=== PATIENT | female | born 1960 | race Caucasian/White ===

== ENCOUNTER 2017-02-11 00:21 | Emergency (ER) ==
[2017-02-11 01:03] LABS: BASOPHILS # (AUTO) 0.1 K/uL (0-0.2); BASOPHILS % (AUTO) 0.9 % (0.0-3.0); EOSINOPHILS # (AUTO) 0.1 K/ul (0.0-0.7); HEMATOCRIT 37.9 % (37.0-47.0); HEMOGLOBIN 12.1 g/dl (12.0-16.0); IMMATURE GRANULOCYTE % (AUTO) 0.6 % (0.0-5.0); LYMPHOCYTES # (AUTO) 1.4 K/uL (0.60-3.4); LYMPHOCYTES % (AUTO) 19.5 (10.0-50.0); MEAN CORPUSCULAR HEMOGLOBIN 26.2 pg (27.0-31.0); MEAN CORPUSCULAR HGB CONC 31.9 (31.8-35.4); MONOCYTES # (AUTO) 0.6 K/uL (0.4-2.0); MONOCYTES % (AUTO) 8.2 (0-10); NEUTROPHILS # (AUTO) 4.8 K/ul (2.0-6.9); NEUTROPHILS % (AUTO) 68.8; PLATELET COUNT 209 10^3/uL (140-440); RED BLOOD COUNT 4.62 10^6/ul (4.20-5.40); WHITE BLOOD COUNT 6.99 K/ul (4.6-10.2)
[2017-02-11 01:12] VITALS: BP 131/97; TEMP 98.3; BMI 43.4
--- NOTE | 2017-02-11 01:18 | CT ---
EXAM: CT head without contrast. HISTORY: Vertigo. PROCEDURE: Contiguous axial CT images of the head without contrast. FINDINGS: The ventricles and basal cisterns are normal in size and configuration. No evidence of mass or midline shift. No intracranial hemorrhage or evidence of large vessel infarct. No extra-ax ial fluid collection. The paranasal sinuses and mastoid air cells are well-aerated. Impression: Negative CT of the head.
[2017-02-11 01:31] LABS: ABG BASE EXCESS 1 (-2.0-2.0); ABG PCO2 43.5 mmHg (35-45); ABG PH 7.381 (7.35-7.45)
[2017-02-11 01:32] LABS: ABG HCO3 25.8 (22.0-26.0); ABG TCO2 27 (22.0-28.0)
[2017-02-11 01:50] LABS: ALANINE AMINOTRANSFERASE 21 U/L (12-78); ALBUMIN 3.5 g/dL (3.4-5.0); ALBUMIN/GLOBULIN RATIO 0.92; ALKALINE PHOSPHATASE 87 U/L (42-98); AMYLASE 55 U/L (25-115); ANION GAP 12.9; ASPARTATE AMINO TRANSFERASE 15 U/L (15-37); BILIRUBIN,TOTAL 0.28 mg/dL (0.00-1.20); BLOOD UREA NITROGEN 13 mg/dL (7-18); BUN/CREATININE RATIO 14.94; CALCIUM 9.3 mg/dL (8.2-10.2); CARBON DIOXIDE 28 mmol/L (21-32); CHLORIDE 107 mmol/L (98-107); CREATINE KINASE 40 U/L; CREATININE 0.87 mg/dL (0.60-1.30); GLUCOSE 167 mg/dL (70-110); LIPASE 42 U/L (8-78); POTASSIUM 3.9 mmol/L (3.5-5.10); SODIUM 144 mmol/L (136-145); TOTAL PROTEIN 7.3 g/dL (6.4-8.2)
[2017-02-11] MEDS: PHENERGAN 25 MG/ML VIAL ONE (02:09)
[2017-02-11] MEDS: PHENERGAN 25 MG/ML VIAL 25 MG in SODIUM CHLORIDE 50 ML IV STA (02:09)
[2017-02-11] MEDS: SODIUM CHLORIDE 1,000 ML IV STA ×2 (02:10→06:16)
--- NOTE | 2017-02-11 06:17 | ED.PDOC ---
General ED Provider: Dr. PEPITO MCKNIGHT-ER Chief Complaint: Dizziness Stated Complaint: the room is spinning Time Seen by Physician: 01:10 Mode of Arrival: Wheelchair Information Source: Patient Exam Limitations: No limitations Nursing and Triage Documentation Reviewed and Agree: Yes Neurological Complaint Exam - Dizziness Complaint/Exam Last Known Well: today Onset: Sudden Duration: several minutes Symptoms Are: Still present Episodes Lasting: Minutes Initial Severity: Mild Current Severity: Mild Character: Reports: Head spinning, Room spinning, Dizzy Aggravating: Reports: None Alleviating: Reports: None Associated Signs and Symptoms: Reports: Nausea. Denies: Vomiting, Diaphoresis, Tinnitus, Chest pain, Short of air, Palpitations, Unsteady gait, GI blood loss, Visual changes, Decreased oral intake, Change in medication, Change in diet, OTC meds, Loss of balance Cardiac Risk Factors: Reports: Diabetes CVA Risk Factors: Reports: Diabetes JVD Present: No Carotid Bruit Present: No Glascow Coma Scale (see protocol): 15 Nystagmus Present: No Gag Reflex Present: Yes Meningeal Signs Positive: No Focal Weakness: Present: None Focal Sensory Loss: Present: None Gait: Normal [id number]: Normal Findings Romberg Test Positive: No Babinski Sign: Negative Right, Negative Left Heel to Toe Normal: Yes Wilian-Hallpike Test Positive: Yes Differential Diagnoses: BPPV, Labyrinthitis, Other Quality Indicator For Non-Traumatic Chest Pain/Syncope: EKG Performed Review of Systems - Review Of Systems Constitutional: Reports: No symptoms Eyes: Reports: No symptoms Ears, Nose, Mouth, Throat: Reports: No symptoms Respiratory: Reports: No symptoms Cardiac: Reports: No symptoms GI: Reports: Nausea : Reports: No symptoms Musculoskeletal: Reports: No symptoms Skin: Reports: No symptoms Neurological: Reports: Other Endocrine: Reports: No symptoms Hematologic/Lymphatic: Reports: No symptoms All Other Systems: Reviewed and Negative Past Medical History - Past Medical History Endocrine: Reports: DM 2 Cardiovascular: Reports: Unknown Respiratory: Reports: Unknown Hematological: Reports: Unknown Gastrointestinal: Reports: Unknown Genitourinary: Reports: Unknown Neuro/Psych: Reports: Unknown Musculoskeletal: Reports: Unknown Cancer: Reports: Unknown Last Menstrual Period: 1991 - Surgical History General Surgical History: Reports: Unknown - Family History Family History: Reports: Unknown - Social History Smoking Status: Former smoker Hx Substance Use: No Alcohol Screening: None - Immunizations Tetanus Shot up to Date: Yes Physical Exam - Physical Exam Appearance: Well-appearing, No pain distress, Well-nourished Eyes: JOSE, EOMI, Conjunctiva clear ENT: Ears normal, Nose normal, Oropharynx normal Neck: Supple Respiratory: Airway patent, Breath sounds clear, Breath sounds equal, Respirations nonlabored Cardiovascular: RRR, Pulses normal, No rub, No murmur GI/: Soft, Nontender, No masses, Bowel sounds normal, No Organomegaly Musculoskeletal: Normal strength, ROM intact, No edema, No calf tenderness Skin: Warm Neurological: Sensation intact, Motor intact, Reflexes intact, Cranial nerves intact, Alert, Oriented Psychiatric: Affect appropriate, Mood appropriate Interpretation - Radiology Interpretation Radiology Interpretation By: Radiologist Radiology Results: Negative Exam Interpreted: CT Scan - EKG Interpretation Time of EKG #1: 06:17 Rate: Normal Rhythm: Sinus Ectopy: None [place]: [place] ST Segment: Normal Re-Evaluation - Re-Evaluation Time of Re-Evaluation: 06:18 Status: Improved Vital Signs Stable: Yes Pain Level: 0 Appearance: NAD Lungs: Clear Skin: Warm and Dry Neuro: Alert and Oriented X3 CV: RRR Critical Care Note - Critical Care Note Total Time (mins): 0 Course - Course Hematology/Chemistry: 02/11/17 01:03 02/11/17 01:03 Orders, Labs, Meds: Lab Review 02/11/17 02/11/17 00:51 01:03 WBC 6.99 RBC 4.62 Hgb 12.1 Hct 37.9 MCV 82.0 MCH 26.2 L MCHC 31.9 RDW Coeff of Wilian 14.5 Plt Count 209 Immature Gran % (Auto) 0.6 Neut % (Auto) 68.8 Lymph % (Auto) 19.5 [place] % (Auto) 8.2 Eos % (Auto) 2.0 Baso % (Auto) 0.9 Immature Gran # (Auto) 0.0 Neut # 4.8 Lymph # 1.4 [place] # 0.6 Eos # 0.1 Baso # 0.1 Puncture Site Lb O2 Saturation 94.0 L ABG pH 7.381 ABG pCO2 43.5 ABG pO2 72.0 L ABG HCO3 25.8 ABG Total CO2 27 ABG Base Excess 1 Dav Test + FiO2 % 21.0 Sodium 144 Potassium 3.9 Chloride 107 Carbon Dioxide 28 Anion Gap 12.9 BUN 13 Creatinine 0.87 Estimated GFR (MDRD) 67.00 BUN/Creatinine Ratio 14.94 Glucose 167 H Calcium 9.3 Total Bilirubin 0.28 AST 15 ALT 21 Alkaline Phosphatase 87 Total Creatine Kinase 40 Troponin I < 0.0100 Total Protein 7.3 Albumin 3.5 Globulin 3.8 Albumin/Globulin Ratio 0.92 Amylase 55 Lipase 42 TSH 1.343 Orders Category Date Time Status ABG DRAW REQUEST Stat CARDIO 02/11/17 00:52 Completed EKG-(ED ONLY) Stat CARDIO 02/11/17 00:52 Completed IV [ED IV/MEDIPORT/POWERPORT] .ONCE EMERGENCY 02/11/17 00:52 Active ABG Stat LAB 02/11/17 00:51 Completed AMYLASE Stat LAB 02/11/17 01:03 Completed CBC W/ AUTO DIFF Stat LAB 02/11/17 01:03 Completed COMPREHENSIVE METABOLIC PANEL Stat LAB 02/11/17 01:03 Completed CREATINE KINASE Stat LAB 02/11/17 01:03 Completed LIPASE Stat LAB 02/11/17 01:03 Completed THYROID STIMULATING HORMONE Stat LAB 02/11/17 01:03 Completed TROPONIN I Stat LAB 02/11/17 01:03 Completed URINALYSIS C & S IF INDICATED Stat LAB 02/11/17 00:52 Uncollected 0.9 % Sodium Chloride [Saline Flush] MEDS 02/11/17 00:52 Ordered 1 syr IVF PRN PRN Promethazine HCl [Phenergan 25 mg/ml Vial] MEDS 02/11/17 01:58 Discontinued 25 mg .ROUTE .STK-MED ONE Promethazine HCl [Phenergan 25 mg/ml Vial] 25 mg MEDS 02/11/17 00:53 Discontinued 0.9 % Sodium Chloride [Sodium Chloride] 50 ml IV ONCE Sodium Chloride 0.9% [Sodium Chloride] 1,000 ml MEDS 02/11/17 00:53 Discontinued IV 100 mls/hr Sodium Chloride 0.9% [Sodium Chloride] 1,000 ml MEDS 02/11/17 00:54 Discontinued IV 333 mls/hr CT HEAD W/O CONTRAST Stat RADS 02/11/17 00:53 Completed Medications Generic Name Dose Route Start Last Admin Trade Name Freq PRN Reason Stop Dose Admin Sodium Chloride 1 syr 02/11/17 00:52 Saline Flush IVF PRN PRN To flush IV Discontinued Medications Generic Name Dose Route Start Last Admin Trade Name Jason PRN Reason Stop Dose Admin Promethazine HCl 25 mg/ Sodium 51 mls @ 75 mls/hr 02/11/17 00:53 02/11/17 02: 09 Chloride IV 02/11/17 01:33 75 mls/hr ONCE STA Administration Sodium Chloride 1,000 mls @ 100 mls/hr 02/11/17 00:53 02/11/17 02:10 Sodium Chloride IV 02/11/17 10:52 100 mls/hr .Q10H STA Administration Sodium Chloride 1,000 mls @ 333 mls/hr 02/11/17 00:54 Sodium Chloride IV 02/11/17 03:53 .Q3H1M STA Vital Signs: Temp Pulse Resp BP Pulse Ox 02/11/17 01:00 98.3 F 85 20 131/97 H 97 Departure - Departure Time of Disposition: 06:18 Disposition: HOME SELF-CARE Discharge Problem: Vertigo Instructions: Vertigo (ED) Condition: Good Pt referred to PMD for follow-up: Yes Additional Instructions: antivert 25mg tid for dizziness#21--avoid driving and climbing next 2-3 days--f/ u with pcp Allergies/Adverse Reactions: Allergies loratadine [From Claritin] Adverse Reaction (Verified 02/11/17 01:13) Nausea nausea and rapid heart rate metformin Adverse Reaction (Verified 02/11/17 01:13) Nausea Home Medications: Ambulatory Orders Benazepril HCl 5 mg PO DAILY 02/11/17 Clopidogrel Bisulfate [Plavix] 75 mg PO DAILY 02/11/17 Insulin Glargine,Hum.rec.anlog [Lantus] 100 unit SUBCUT QPM 02/11/17 Insulin Lispro [Humalog] 1 unit SQ DIRECTED 02/11/17 Meloxicam [Mobic] 15 mg PO DAILY 02/11/17 Pioglitazone HCl 60 mg PO DAILY 02/11/17
== END 2017-02-11 06:29 | disposition home or self-care (01) ==
LOC: ED 00:21
DX: R42 Dizziness and giddiness (principal); E11.9 Type 2 diabetes mellitus without complications
CPT/HCPCS: 36415; 80053; 82150; 82550; 82803; 83690; 84443; 84484; 85025; 93005; 93010; 96361; 96365; 99285

== ENCOUNTER 2017-02-16 07:36 | Outpatient (CLI) ==
[2017-02-16 08:05] LABS: BASOPHILS # (AUTO) 0.1 K/uL (0-0.2); BASOPHILS % (AUTO) 0.8 % (0.0-3.0); EOSINOPHILS # (AUTO) 0.2 K/ul (0.0-0.7); EOSINOPHILS % (AUTO) 2.3 % (0.0-7.0); HEMATOCRIT 39.4 % (37.0-47.0); HEMOGLOBIN 12.8 g/dl (12.0-16.0); IMMATURE GRANULOCYTE % (AUTO) 0.7 % (0.0-5.0); LYMPHOCYTES # (AUTO) 2.2 K/uL (0.60-3.4); LYMPHOCYTES % (AUTO) 25.3 (10.0-50.0); MEAN CORPUSCULAR HEMOGLOBIN 26.2 pg (27.0-31.0); MEAN CORPUSCULAR HGB CONC 32.5 (31.8-35.4); MEAN CORPUSCULAR VOLUME 80.7 fl (81.0-99.0); MONOCYTES # (AUTO) 0.6 K/uL (0.4-2.0); MONOCYTES % (AUTO) 7.3 (0-10); NEUTROPHILS # (AUTO) 5.4 K/ul (2.0-6.9); NEUTROPHILS % (AUTO) 63.6; PLATELET COUNT 237 10^3/uL (140-440); RED BLOOD COUNT 4.88 10^6/ul (4.20-5.40); WHITE BLOOD COUNT 8.55 K/ul (4.6-10.2)
[2017-02-16 08:09] LABS: BILIRUBIN,URINE Negative (NEGATIVE); KETONES,URINE Negative (NEGATIVE); LEUKOCYTE ESTERASE ,URINE Negative (NEGATIVE); NITRITE,URINE Negative (NEGATIVE); PROTEIN,URINE Negative (NEGATIVE); URINE, BLOOD Negative (NEGATIVE)
[2017-02-16 08:10] LABS: ADD URINE MICROSCOPIC NO
[2017-02-16 08:26] LABS: COCAIN SCREEN,URINE NEGATIVE (NEGATIVE)
[2017-02-16 08:45] LABS: ALBUMIN 3.4 g/dL (3.4-5.0); ALBUMIN/GLOBULIN RATIO 0.81; ANION GAP 14.1; BILIRUBIN,TOTAL 0.31 mg/dL (0.00-1.20); BUN/CREATININE RATIO 24.17; CALCIUM 9.6 mg/dL (8.2-10.2); CHOL/HDL RATIO 8.3 (4.5-5.5); CREATININE 0.91 mg/dL (0.60-1.30); POTASSIUM 4.1 mmol/L (3.5-5.10); TOTAL PROTEIN 7.6 g/dL (6.4-8.2)
--- NOTE | 2017-02-16 10:05 | DI ---
Exam: Two x-rays of the chest. Comparison: None available. Reason for exam: Chest pain. FINDINGS: No pneumothorax, pleural effusion, or focal consolidation. The cardiac silhouette is not enlarged. There is elevation of the right hemidiaphragm. The imaged osseous structures are unrema rkable without acute fracture. Impression: No acute cardiopulmonary process.
== END 2017-02-16 07:37 | disposition home or self-care (01) ==
LOC: RAD 07:36
PROVIDERS: ATTEND Family Medicine
DX: Z00.00 Encounter for general adult medical examination without abnormal findings (principal); E11.9 Type 2 diabetes mellitus without complications; I10 Essential (primary) hypertension; R07.9 Chest pain, unspecified; E78.00 Pure hypercholesterolemia, unspecified; Z87.891 Personal history of nicotine dependence
CPT/HCPCS: 36415; 80053; 80061; 80306; 81001; 83036; 84439; 84443; 85025

== ENCOUNTER 2017-03-08 07:32 | Outpatient (CLI) ==
[2017-03-08 07:55] LABS: BASOPHILS # (AUTO) 0.1 K/uL (0-0.2); BASOPHILS % (AUTO) 0.9 % (0.0-3.0); EOSINOPHILS # (AUTO) 0.2 K/ul (0.0-0.7); EOSINOPHILS % (AUTO) 2.3 % (0.0-7.0); HEMATOCRIT 37.6 % (37.0-47.0); HEMOGLOBIN 12.1 g/dl (12.0-16.0); IMMATURE GRANULOCYTE % (AUTO) 0.4 % (0.0-5.0); LYMPHOCYTES # (AUTO) 2.1 K/uL (0.60-3.4); LYMPHOCYTES % (AUTO) 22.4 (10.0-50.0); MEAN CORPUSCULAR HGB CONC 32.2 (31.8-35.4); MEAN CORPUSCULAR VOLUME 80.9 fl (81.0-99.0); MONOCYTES # (AUTO) 0.6 K/uL (0.4-2.0); MONOCYTES % (AUTO) 6.5 (0-10); NEUTROPHILS # (AUTO) 6.3 K/ul (2.0-6.9); NEUTROPHILS % (AUTO) 67.5; PLATELET COUNT 214 10^3/uL (140-440); RED BLOOD COUNT 4.65 10^6/ul (4.20-5.40); WHITE BLOOD COUNT 9.27 K/ul (4.6-10.2)
[2017-03-08 07:59] LABS: BILIRUBIN,URINE Negative (NEGATIVE); KETONES,URINE Negative (NEGATIVE); LEUKOCYTE ESTERASE ,URINE Negative (NEGATIVE); NITRITE,URINE Negative (NEGATIVE); PROTEIN,URINE Negative (NEGATIVE); URINE, BLOOD Negative (NEGATIVE)
[2017-03-08 08:06] LABS: ADD URINE MICROSCOPIC NO
[2017-03-08 08:11] LABS: ALBUMIN 3.4 g/dL (3.4-5.0); ALBUMIN/GLOBULIN RATIO 0.85; ANION GAP 11.6; BILIRUBIN,TOTAL 0.42 mg/dL (0.00-1.20); BUN/CREATININE RATIO 21.25; CALCIUM 9.2 mg/dL (8.2-10.2); CHOL/HDL RATIO 4.7 (4.5-5.5); CREATININE 0.8 mg/dL (0.60-1.30); POTASSIUM 3.6 mmol/L (3.5-5.10); TOTAL PROTEIN 7.4 g/dL (6.4-8.2)
--- NOTE | 2017-03-08 08:46 | DI ---
EXAM: Five views of the lumbar spine HISTORY: Back pain and numbness down both legs. COMPARISON: None FINDINGS: There is no acute compression fracture or subluxation of the lumbar spine. There is minim al anterior disc osteophyte noted at T12-L1. There is scattered facet arthropathy. The lumbosacral junction is intact. Neural foramen are patent. The facets are normal. There are surgical clips i n the pelvis. IMPRESSION: Mild scattered degenerative disease with no acute compression fracture or subluxation.
== END 2017-03-08 07:33 | disposition home or self-care (01) ==
LOC: RAD 07:32
PROVIDERS: ATTEND Family Medicine
DX: M79.605 Pain in left leg (principal); M79.604 Pain in right leg; R20.0 Anesthesia of skin; E11.9 Type 2 diabetes mellitus without complications; E78.5 Hyperlipidemia, unspecified; I10 Essential (primary) hypertension; E66.9 Obesity, unspecified
CPT/HCPCS: 36415; 80053; 80061; 81001; 85025

== ENCOUNTER 2017-04-05 12:52 | Outpatient (CLI) ==
--- NOTE | 2017-04-05 13:14 | DI ---
EXAM: Views of the right shoulder HISTORY: Pain TECHNIQUE: AP lateral views of the right shoulder were obtained. FINDINGS: There is elevation of the humeral head superiorly towards the acromion. There is mild ar thritis of the right AC joint. No acute fractures are seen. The humeral head is seen in normal pos ition. IMPRESSION: No acute fractures are seen within the right shoulder. Probable chronic tear of the rotator cuff. Mild arthritis of the right AC joint.
[2017-04-05 13:28] LABS: BASOPHILS # (AUTO) 0.1 K/uL (0-0.2); BASOPHILS % (AUTO) 1.2 % (0.0-3.0); EOSINOPHILS # (AUTO) 0.2 K/ul (0.0-0.7); EOSINOPHILS % (AUTO) 2.1 % (0.0-7.0); HEMOGLOBIN 12.8 g/dl (12.0-16.0); IMMATURE GRANULOCYTE % (AUTO) 0.4 % (0.0-5.0); LYMPHOCYTES # (AUTO) 1.7 K/uL (0.60-3.4); LYMPHOCYTES % (AUTO) 22.6 (10.0-50.0); MEAN CORPUSCULAR HEMOGLOBIN 25.7 pg (27.0-31.0); MEAN CORPUSCULAR VOLUME 80.2 fl (81.0-99.0); MONOCYTES # (AUTO) 0.5 K/uL (0.4-2.0); MONOCYTES % (AUTO) 6.6 (0-10); NEUTROPHILS # (AUTO) 4.9 K/ul (2.0-6.9); NEUTROPHILS % (AUTO) 67.1; PLATELET COUNT 236 10^3/uL (140-440); RED BLOOD COUNT 4.99 10^6/ul (4.20-5.40); WHITE BLOOD COUNT 7.29 K/ul (4.6-10.2)
[2017-04-05 13:29] LABS: BILIRUBIN,URINE 1+ (NEGATIVE); KETONES,URINE Negative (NEGATIVE); LEUKOCYTE ESTERASE ,URINE Negative (NEGATIVE); NITRITE,URINE Negative (NEGATIVE); PH,URINE 5.5 (5-9); PROTEIN,URINE Negative (NEGATIVE); URINE, BLOOD Negative (NEGATIVE)
[2017-04-05 13:30] LABS: ADD URINE MICROSCOPIC NO
[2017-04-05 13:44] LABS: ALANINE AMINOTRANSFERASE 18 U/L (12-78); ALBUMIN 3.8 g/dL (3.4-5.0); ALBUMIN/GLOBULIN RATIO 0.93; ALKALINE PHOSPHATASE 90 U/L (42-98); ANION GAP 16.5; ASPARTATE AMINO TRANSFERASE 10 U/L (15-37); BILIRUBIN,TOTAL 0.56 mg/dL (0.00-1.20); BLOOD UREA NITROGEN 24 mg/dL (7-18); BUN/CREATININE RATIO 23.76; CALCIUM 9.9 mg/dL (8.2-10.2); CARBON DIOXIDE 25 mmol/L (21-32); CHLORIDE 104 mmol/L (98-107); CHOL/HDL RATIO 5.5 (4.5-5.5); CHOLESTEROL 180 mg/dL (0-200); CREATININE 1.01 mg/dL (0.60-1.30); GLUCOSE 221 mg/dL (70-110); HDL CHOLESTEROL 33 mg/dL (35-80); POTASSIUM 4.5 mmol/L (3.5-5.10); SODIUM 141 mmol/L (136-145); TOTAL PROTEIN 7.9 g/dL (6.4-8.2); TRIGLYCERIDES 432 mg/dL (30-150)
== END 2017-04-05 12:53 | disposition home or self-care (01) ==
LOC: LAB 12:52
PROVIDERS: ATTEND Family Medicine
DX: E11.9 Type 2 diabetes mellitus without complications (principal); I10 Essential (primary) hypertension; E78.2 Mixed hyperlipidemia; R81 Glycosuria; M25.511 Pain in right shoulder
CPT/HCPCS: 36415; 80053; 80061; 81001; 83036; 85025

== ENCOUNTER 2017-05-15 11:30 | Outpatient (CLI) ==
[2017-05-15 11:48] LABS: BASOPHILS % (AUTO) 0.6 % (0.0-3.0); EOSINOPHILS # (AUTO) 0.2 K/ul (0.0-0.7); EOSINOPHILS % (AUTO) 2.4 % (0.0-7.0); HEMATOCRIT 36.1 % (37.0-47.0); HEMOGLOBIN 11.7 g/dl (12.0-16.0); IMMATURE GRANULOCYTE % (AUTO) 0.6 % (0.0-5.0); LYMPHOCYTES # (AUTO) 1.5 K/uL (0.60-3.4); LYMPHOCYTES % (AUTO) 22.1 (10.0-50.0); MEAN CORPUSCULAR HEMOGLOBIN 26.2 pg (27.0-31.0); MEAN CORPUSCULAR HGB CONC 32.4 (31.8-35.4); MEAN CORPUSCULAR VOLUME 80.8 fl (81.0-99.0); MONOCYTES # (AUTO) 0.4 K/uL (0.4-2.0); MONOCYTES % (AUTO) 6.7 (0-10); NEUTROPHILS # (AUTO) 4.4 K/ul (2.0-6.9); NEUTROPHILS % (AUTO) 67.6; PLATELET COUNT 201 10^3/uL (140-440); RED BLOOD COUNT 4.47 10^6/ul (4.20-5.40); WHITE BLOOD COUNT 6.56 K/ul (4.6-10.2)
[2017-05-15 11:50] LABS: BILIRUBIN,URINE Negative (NEGATIVE); KETONES,URINE Negative (NEGATIVE); LEUKOCYTE ESTERASE ,URINE Negative (NEGATIVE); NITRITE,URINE Negative (NEGATIVE); PH,URINE 5.5 (5-9); PROTEIN,URINE Negative (NEGATIVE); URINE, BLOOD Negative (NEGATIVE)
[2017-05-15 12:00] LABS: ADD URINE MICROSCOPIC NO
[2017-05-15 12:05] LABS: ALBUMIN 3.3 g/dL (3.4-5.0); ALBUMIN/GLOBULIN RATIO 0.87; ANION GAP 13.7; BILIRUBIN,TOTAL 0.45 mg/dL (0.00-1.20); BUN/CREATININE RATIO 18.39; CALCIUM 9.3 mg/dL (8.2-10.2); CHOL/HDL RATIO 4.6 (4.5-5.5); CREATININE 0.87 mg/dL (0.60-1.30); POTASSIUM 4.7 mmol/L (3.5-5.10); TOTAL PROTEIN 7.1 g/dL (6.4-8.2)
== END 2017-05-15 11:31 | disposition home or self-care (01) ==
LOC: LAB 11:30
PROVIDERS: ATTEND Family Medicine
DX: E11.9 Type 2 diabetes mellitus without complications (principal); I10 Essential (primary) hypertension; N18.9 Chronic kidney disease, unspecified; E78.1 Pure hyperglyceridemia
CPT/HCPCS: 36415; 80053; 80061; 81001; 83036; 85025

== ENCOUNTER 2017-05-17 09:49 | Outpatient (CLI) ==
--- NOTE | 2017-05-17 21:31 | MRI ---
EXAM: Lumbar spine MRI without contrast. HISTORY: Low back pain with radiculopathy and numbness in feet. COMPARISON: Lumbar spine radiographs 02/18/2017. TECHNIQUE: Multiplanar, multisequence MR images were acquired of the lumbar spine without contrast. FINDINGS: Five lumbar-type vertebra are present. There is minor thoracolumbar dextroscoliosis cent ered at L3-4 and 2 mm rightward translation of L4 on L5. There is 1.5 mm degenerative anterolisthes is of L4 on L5.. The lumbar vertebra are normal in height and intrinsic bone marrow signal. There is mild irregular concavity of the endplates from L1-2 to L3-4 and at L4-5, there is mild disc space narrowing, minor endplate irregularity and disc desiccation. At L5-S1, there is disc desiccation. A small chronic Schmorl's node is present at L2. Conus medullaris ends low at L2-3 and has normal configuration and signal intensity. The partially visualized liver, spleen and kidneys are unremarkable. There is bilateral sacroiliac osteoarthrosis. T12-L1: The intervertebral disc is normal. L1-2: The intervertebral disc is normal. L2-3: There is a minor disc bulge and minor right hypertrophic facet arthropathy without foraminal stenosis or central canal stenosis. L3-4: The intervertebral disc is normal. There is mild to moderate left and moderate right hypertr ophic facet arthropathy that minimally narrows the posterolateral thecal sac bilaterally. There is no central canal stenosis or foraminal stenosis. L4-5: There is a minor disc bulge. There is rightward translation of L4 on L5 and there is a mild disc bulge/pseudo disc bulge with small right far lateral endplate osteophytes and there is a left p osterolateral/lateral annular fissure and more focal bulging of the disc that narrows the left neura l foramen. Mild to moderate left and moderate right hypertrophic facet arthropathy is present and t here is mild left neural foraminal stenosis. There is no central canal stenosis. L5-S1: The intervertebral disc is normal. There is minor left and mild right hypertrophic facet ar thropathy without foraminal stenosis. There are partially conjoined left S1 and S2 nerves in the lef t lateral recess at L5-S1 IMPRESSION: 1. Mild lumbar degenerative spondylosis. 2. No lumbar disc herniations, pars interarticularis defects or spinal stenosis.
== END 2017-05-17 09:50 | disposition home or self-care (01) ==
LOC: RAD 09:49
PROVIDERS: ATTEND Family Medicine
DX: M54.5 Low back pain (principal); M54.16 Radiculopathy, lumbar region; R20.0 Anesthesia of skin

== ENCOUNTER 2017-07-03 08:37 | Outpatient (CLI) ==
[2017-07-03 09:03] LABS: BASOPHILS # (AUTO) 0.1 K/uL (0-0.2); BASOPHILS % (AUTO) 0.7 % (0.0-3.0); EOSINOPHILS # (AUTO) 0.3 K/ul (0.0-0.7); EOSINOPHILS % (AUTO) 4.3 % (0.0-7.0); HEMOGLOBIN 12.5 g/dl (12.0-16.0); IMMATURE GRANULOCYTE % (AUTO) 1.2 % (0.0-5.0); LYMPHOCYTES # (AUTO) 1.7 K/uL (0.60-3.4); LYMPHOCYTES % (AUTO) 24.7 (10.0-50.0); MEAN CORPUSCULAR HEMOGLOBIN 26.5 pg (27.0-31.0); MEAN CORPUSCULAR HGB CONC 32.9 (31.8-35.4); MEAN CORPUSCULAR VOLUME 80.5 fl (81.0-99.0); MONOCYTES # (AUTO) 0.5 K/uL (0.4-2.0); MONOCYTES % (AUTO) 6.9 (0-10); NEUTROPHILS # (AUTO) 4.3 K/ul (2.0-6.9); NEUTROPHILS % (AUTO) 62.2; PLATELET COUNT 220 10^3/uL (140-440); RED BLOOD COUNT 4.72 10^6/ul (4.20-5.40); WHITE BLOOD COUNT 6.95 K/ul (4.6-10.2)
[2017-07-03 09:15] LABS: BILIRUBIN,URINE Negative (NEGATIVE); KETONES,URINE Trace (NEGATIVE); LEUKOCYTE ESTERASE ,URINE Negative (NEGATIVE); NITRITE,URINE Negative (NEGATIVE); PROTEIN,URINE Trace (NEGATIVE); URINE, BLOOD Negative (NEGATIVE)
[2017-07-03 09:22] LABS: ADD URINE MICROSCOPIC YES
[2017-07-03 09:28] LABS: BACTERIA,URINE 1+ (NOT PRESENT)
[2017-07-03 09:44] LABS: ALBUMIN/GLOBULIN RATIO 0.75; ANION GAP 14.4; BILIRUBIN,TOTAL 0.36 mg/dL (0.00-1.20); BUN/CREATININE RATIO 24.17; CALCIUM 9.6 mg/dL (8.2-10.2); CHOL/HDL RATIO 5.7 (4.5-5.5); CREATININE 0.91 mg/dL (0.60-1.30); POTASSIUM 4.4 mmol/L (3.5-5.10)
== END 2017-07-03 08:38 | disposition home or self-care (01) ==
LOC: LAB 08:37
PROVIDERS: ATTEND Family Medicine
DX: E78.5 Hyperlipidemia, unspecified (principal); E11.9 Type 2 diabetes mellitus without complications; I10 Essential (primary) hypertension; Z79.899 Other long term (current) drug therapy
CPT/HCPCS: 36415; 80053; 80061; 81001; 83036; 84443; 85025

== ENCOUNTER 2017-07-05 13:38 | Outpatient (CLI) ==
--- NOTE | 2017-07-05 14:19 | DI ---
EXAM: Chest two views HISTORY: Cough and chest pain COMPARISON: 02/16/2017 TECHNIQUE: Two views of the chest were performed FINDINGS: Mild chronic elevation right hemidiaphragm. There is lower airway bronchial wall thickeni ng. There is no focal airspace consolidation. There is no pleural effusion or pneumothorax. The hea rt is normal in size. The mediastinal contour is normal. There is no acute abnormality of the bones . IMPRESSION: Lower airway thickening may represent reactive airways disease or bronchiolitis. No foc al airspace consolidation.
== END 2017-07-05 13:39 | disposition home or self-care (01) ==
LOC: RAD 13:38
PROVIDERS: ATTEND Family Medicine
DX: R05 Cough (principal); R07.9 Chest pain, unspecified

== ENCOUNTER 2017-09-07 09:35 | Outpatient (CLI) ==
[2017-09-07 15:35] VITALS: BMI 44.4
== END 2017-09-07 09:36 | disposition home or self-care (01) ==
LOC: DIETCN 09:35
PROVIDERS: ATTEND Family Medicine
DX: E11.9 Type 2 diabetes mellitus without complications (principal); E66.01 Morbid (severe) obesity due to excess calories
CPT/HCPCS: 97802

== ENCOUNTER 2017-09-20 09:19 | Outpatient (CLI) ==
[2017-09-20 09:42] LABS: BASOPHILS % (AUTO) 0.9 % (0.0-3.0); EOSINOPHILS # (AUTO) 0.1 K/ul (0.0-0.7); EOSINOPHILS % (AUTO) 2.3 % (0.0-7.0); HEMOGLOBIN 12.4 g/dl (12.0-16.0); IMMATURE GRANULOCYTE % (AUTO) 0.9 % (0.0-5.0); LYMPHOCYTES # (AUTO) 2.1 K/uL (0.60-3.4); LYMPHOCYTES % (AUTO) 46.2 (10.0-50.0); MEAN CORPUSCULAR HEMOGLOBIN 26.4 pg (27.0-31.0); MEAN CORPUSCULAR HGB CONC 33.5 (31.8-35.4); MEAN CORPUSCULAR VOLUME 78.9 fl (81.0-99.0); MONOCYTES # (AUTO) 0.4 K/uL (0.4-2.0); MONOCYTES % (AUTO) 8.3 (0-10); NEUTROPHILS # (AUTO) 1.8 K/ul (2.0-6.9); NEUTROPHILS % (AUTO) 41.4; PLATELET COUNT 192 10^3/uL (140-440); RED BLOOD COUNT 4.69 10^6/ul (4.20-5.40); WHITE BLOOD COUNT 4.44 K/ul (4.6-10.2)
[2017-09-20 10:02] LABS: ALBUMIN 3.1 g/dL (3.4-5.0); ALBUMIN/GLOBULIN RATIO 0.67; ANION GAP 18.7; BILIRUBIN,TOTAL 0.4 mg/dL (0.00-1.20); BUN/CREATININE RATIO 14.28; CALCIUM 9.2 mg/dL (8.2-10.2); CHOL/HDL RATIO 12.5 (4.5-5.5); CREATININE 0.98 mg/dL (0.60-1.30); FLU INTERNAL QC INTERNAL QC VALID; POTASSIUM 3.7 mmol/L (3.5-5.10); RAPID FLU A NEGATIVE (NEGATIVE); RAPID FLU B NEGATIVE (NEGATIVE); TOTAL PROTEIN 7.7 g/dL (6.4-8.2)
--- NOTE | 2017-09-20 10:04 | DI ---
EXAM: Two-view chest HISTORY: Acute respiratory illness COMPARISON: Two-view chest 07/05/2017 FINDINGS: The cardiomediastinal silhouette is stable.. There is no evidence of infiltrate or effusi on.. There is mild peribronchial thickening which may be related to tracheobronchitis.. Findings ar e similar to that seen on the prior exam IMPRESSION: No acute findings.
== END 2017-09-20 09:20 | disposition home or self-care (01) ==
LOC: LAB 09:19
PROVIDERS: ATTEND Family Medicine
DX: R06.02 Shortness of breath (principal); J06.9 Acute upper respiratory infection, unspecified; J02.9 Acute pharyngitis, unspecified; E11.9 Type 2 diabetes mellitus without complications; I10 Essential (primary) hypertension; E78.5 Hyperlipidemia, unspecified
CPT/HCPCS: 36415; 80053; 80061; 83036; 85025; 87651; 87804; 87880

== ENCOUNTER 2018-01-21 17:44 | Inpatient (IN) ==
[2018-01-21] MEDS ORDERED: LANTUS SUBCUT STA (18:02)
[2018-01-21] MEDS ORDERED: SODIUM CHLORIDE 1,000 ML IV STA (18:58)
--- NOTE | 2018-01-21 19:09 | ED.PDOC ---
General ED Provider: Dr. PEPITO MCKNIGHT-ER Chief Complaint: Diabetes Stated Complaint: i havent had my insulin in several weeks Time Seen by Physician: 17:50 Mode of Arrival: Walk-In Information Source: Patient Exam Limitations: No limitations Primary Care Provider: SHARDA HARRIS Nursing and Triage Documentation Reviewed and Agree: Yes Reviewed sepsis parameters & appropriate labs ordered?: Yes System Inflammatory Response Syndrome: Not Applicable Sepsis Protocol: For patient's 13 years and over: Temp is 96.8 and below OR 101 and greater Pulse >90 BPM Resp >20/minute Acutely Altered Mental Status Are patient's symptoms suggestive of a new infection, such as: -Pneumonia -Skin, Soft Tissue -Endocarditis -UTI -Bone, Joint Infection -Implantable Device -Acute Abdominal Infection -Wound Infection -Meningitis -Blood Stream Catheter Infection -Unknown Endocrine Complaint Exam - Diabetic Complication Complaint/Exam Onset/Duration: 3 days Symptoms Are: Still present Timing: Constant Initial Severity: Mild Current Severity: Mild Character: Alert Aggravating: Reports: Medication change Alleviating: Reports: None Associated Signs and Symptoms: Reports: Polydipsia, Polyuria, Weight loss. Denies: Decreased LOC, Abdominal pain, Nausea, Vomiting, Diaphoresis Related History: Reports: DM 2, Insulin requiring Cardiac Risk Factors: Reports: DM CVA Risk Factors: Reports: DM Related Surgical History: Reports: None Acetone on Breath: No Dry Mucous Membranes: Yes Kussmaul Respirations: No Glascow Coma Scale (see protocol): 15 Meningeal Signs: No Focal Weakness: None Focal Sensory Loss: None Gait: Normal Nystagmus Present: No Gag Reflex Present: Yes Finger to Nose: Normal Romberg Test Positive: No Babinski Sign: Negative Right, Negative Left Heel to Toe Normal: Yes Differential Diagnoses: Diabetic Ketoacidosis, Hyperosmolar State, Hyperglycemia Review of Systems - Review Of Systems Constitutional: Reports: No symptoms Eyes: Reports: No symptoms Ears, Nose, Mouth, Throat: Reports: No symptoms Respiratory: Reports: No symptoms Cardiac: Reports: No symptoms GI: Reports: No symptoms : Reports: No symptoms Musculoskeletal: Reports: No symptoms Skin: Reports: No symptoms Neurological: Reports: No symptoms Endocrine: Reports: Increased thirst, Unexplained weight loss Hematologic/Lymphatic: Reports: No symptoms All Other Systems: Reviewed and Negative Past Medical History - Past Medical History Previously Healthy: No Endocrine: Reports: DM 2 Cardiovascular: Reports: Unknown Respiratory: Reports: Unknown Hematological: Reports: Unknown Gastrointestinal: Reports: Unknown Genitourinary: Reports: Unknown Neuro/Psych: Reports: Unknown Musculoskeletal: Reports: Unknown Cancer: Reports: Unknown Last Menstrual Period: hysterectomy - Surgical History General Surgical History: Reports: Unknown - Family History Family History: Reports: Unknown - Social History Smoking Status: Former smoker Hx Substance Use: No Alcohol Screening: None Physical Exam - Physical Exam Appearance: Well-appearing, No pain distress, Well-nourished Eyes: JOSE, EOMI, Conjunctiva clear ENT: Ears normal, Nose normal, Oropharynx normal Neck: Supple Respiratory: Airway patent, Breath sounds clear, Breath sounds equal, Respirations nonlabored Cardiovascular: RRR, Pulses normal, No rub, No murmur GI/: Soft, Nontender, No masses, Bowel sounds normal, No Organomegaly Musculoskeletal: Normal strength Skin: Warm Neurological: Sensation intact, Motor intact, Reflexes intact, Cranial nerves intact, Alert, Oriented Psychiatric: Affect appropriate, Mood appropriate Physician Notification - Case Discussed Physician Notified: dr olivares Time of Notification: 19:10 Critical Care Note - Critical Care Note Total Time (mins): 30 Course - Course Hematology/Chemistry: 01/21/18 18:10 01/21/18 18:10 Orders, Labs, Meds: Lab Review 01/21/18 01/21/18 01/21/18 18:04 18:10 18:10 WBC 7.30 RBC 5.20 Hgb 13.9 Hct 41.8 MCV 80.4 L MCH 26.7 L MCHC 33.3 RDW Coeff of Wilian 14.5 Plt Count 211 Immature Gran % (Auto) 0.8 Neut % (Auto) 77.0 Lymph % (Auto) 14.0 [place] % (Auto) 5.8 Eos % (Auto) 1.4 Baso % (Auto) 1.0 Immature Gran # (Auto) 0.1 Neut # (Auto) 5.6 Lymph # (Auto) 1.0 [place] # (Auto) 0.4 Eos # (Auto) 0.1 Baso # (Auto) 0.1 Puncture Site Rrad O2 Saturation 95.0 ABG pH 7.365 ABG pCO2 35.9 ABG pO2 79.0 L ABG HCO3 20.5 L ABG Total CO2 22 ABG Base Excess -5 L Dva Test + FiO2 % 21.0 Sodium 134 L Potassium 4.9 Chloride 96 L Carbon Dioxide 23 Anion Gap 19.9 BUN 15 Creatinine 1.20 Estimated GFR (MDRD) 46.00 BUN/Creatinine Ratio 12.50 Glucose 818 H* Calcium 8.9 Total Bilirubin 0.1 AST 18 ALT 21 Alkaline Phosphatase 121 H Total Protein 8.1 Albumin 3.9 Globulin 4.2 Albumin/Globulin Ratio 0.93 Urine Color Urine Clarity Urine pH Ur Specific [place] Urine Protein Urine Glucose (UA) Urine Ketones Urine Blood Urine Nitrite Urine Bilirubin Urine Urobilinogen Ur Leukocyte Esterase Urine Microscopic RBC Urine Microscopic WBC Ur Squamous Epith Cells 01/21/18 18:10 WBC RBC Hgb Hct MCV MCH MCHC RDW Coeff of Wilian Plt Count Immature Gran % (Auto) Neut % (Auto) Lymph % (Auto) [place] % (Auto) Eos % (Auto) Baso % (Auto) Immature Gran # (Auto) Neut # (Auto) Lymph # (Auto) [place] # (Auto) Eos # (Auto) Baso # (Auto) Puncture Site O2 Saturation ABG pH ABG pCO2 ABG pO2 ABG HCO3 ABG Total CO2 ABG Base Excess Dav Test FiO2 % Sodium Potassium Chloride Carbon Dioxide Anion Gap BUN Creatinine Estimated GFR (MDRD) BUN/Creatinine Ratio Glucose Calcium Total Bilirubin AST ALT Alkaline Phosphatase Total Protein Albumin Globulin Albumin/Globulin Ratio Urine Color Yellow Urine Clarity Clear Urine pH 5.0 Ur Specific [place] <=1.005 Urine Protein Negative Urine Glucose (UA) 2+ Urine Ketones Negative Urine Blood Trace-intact Urine Nitrite Negative Urine Bilirubin Negative Urine Urobilinogen 0.2 Ur Leukocyte Esterase Negative Urine Microscopic RBC 0-2 Urine Microscopic WBC 0-2 Ur Squamous Epith Cells 0-2 Orders Category Date Time Status ABG DRAW REQUEST Stat CARDIO 01/21/18 18:04 Completed BLOOD GLUCOSE MONITORING Q1HR CARE 01/21/18 18:02 Active ACCUCHECK (ED) [ED ACCUCHECK ASSESSMENT] .ONCE EMERGENCY 01/21/18 18:01 Active IV [ED IV/MEDIPORT/POWERPORT] .ONCE EMERGENCY 01/21/18 18:58 Active ARTERIAL BLOOD GAS [ABG] Stat LAB 01/21/18 18:04 Completed CBC W/ AUTO DIFF Stat LAB 01/21/18 18:10 Completed COMPREHENSIVE METABOLIC PANEL Stat LAB 01/21/18 18:10 Completed URINALYSIS C & S IF INDICATED Stat LAB 01/21/18 18:10 Completed 0.9 % Sodium Chloride [Saline Flush] MEDS 01/21/18 18:58 Ordered 1 syr IVF PRN PRN 0.9 % Sodium Chloride [Sodium Chloride] 100 ml MEDS 01/21/18 19:00 Ordered Insulin Regular, Human [Humulin R] 100 unit IV 3 unit/hr Insulin Glargine,Hum.rec.anlog [Lantus] MEDS 01/21/18 18:02 Discontinued 100 unit SUBCUT ONCE STA Sodium Chloride 0.9% [Sodium Chloride] 1,000 ml MEDS 01/21/18 18:58 Active IV 125 mls/hr Medications Generic Name Dose Route Start Last Admin Trade Name Freq PRN Reason Stop Dose Admin Insulin Human Regular 100 unit 100 mls @ 3 mls/hr 01/21/18 19:00 / Sodium Chloride IV .Q24H MIKI Protocol 3 UNIT/HR Sodium Chloride 1,000 mls @ 125 mls/hr 01/21/18 18:58 Sodium Chloride IV 01/22/18 02:57 .Q8H STA Sodium Chloride 1 syr 01/21/18 18:58 Saline Flush IVF PRN PRN To flush IV Discontinued Medications Generic Name Dose Route Start Last Admin Trade Name Freq PRN Reason Stop Dose Admin Insulin Glargine 100 unit 01/21/18 18:02 01/21/18 18:22 Lantus SUBCUT 01/21/18 18:03 100 unit ONCE STA Administration Vital Signs: Temp Pulse Resp BP Pulse Ox 01/21/18 17:44 98.6 F 108 H 20 155/101 H 92 L Departure - Departure Time of Disposition: 19:10 Disposition: ADMITTED INPATIENT Discharge Problem: Hyperglycemia Condition: Fair Pt referred to PMD for follow-up: Yes IPMP verified?: No Allergies/Adverse Reactions: Allergies loratadine [From Claritin] Adverse Reaction (Verified 01/21/18 17:51) Nausea nausea and rapid heart rate Home Medications: Ambulatory Orders Benazepril HCl 5 mg PO DAILY 02/11/17 Insulin Glargine,Hum.rec.anlog [Lantus] 100 unit SUBCUT QPM 02/11/17 Meloxicam [Mobic] 7.5 mg PO BID 02/11/17 Atorvastatin Calcium 40 mg PO DAILY 01/21/18 Captopril 25 mg PO DAILY 01/21/18 Fluoxetine HCl 20 mg PO DAILY 01/21/18 Linagliptin [Tradjenta] 5 mg PO DAILY 01/21/18 Metformin HCl 1,000 mg PO DAILY 01/21/18 Ranitidine HCl [Acid Control] 150 mg PO DAILY 01/21/18 Disposition Discussed With: Patient, Family
[2018-01-21] MEDS ORDERED: HUMULIN R 100 UNIT in SODIUM CHLORIDE 100 ML IV SCH (19:15)
[2018-01-21] MEDS ORDERED: HUMULIN R ONE (19:21)
[2018-01-21] MEDS ORDERED: SODIUM CHLORIDE 1,000 ML IV SCH (19:30)
[2018-01-21] MEDS: HUMULIN R 100 UNIT in SODIUM CHLORIDE 100 ML IV SCH (20:28)
[2018-01-21 21:00] VITALS: BMI 36.3
[2018-01-21] MEDS ORDERED: NON-FORMULARY MEDICATION (Meloxicam [Mobic] 7.5 MG) PO SCH (21:00)
[2018-01-21] MEDS ORDERED: MOBIC ONE (21:50)
[2018-01-22] MEDS: LACTATED RINGERS 1,000 ML IV SCH ×2 (03:38→14:12)
[2018-01-22] MEDS: HUMULIN R SUBCUT PRN ×4 (05:59→22:32)
[2018-01-22] MEDS ORDERED: MOBIC PO SCH (09:00)
[2018-01-22] MEDS ORDERED: NON-FORMULARY MEDICATION (Atorvastatin Calcium [Atorvastatin Calcium] 40 MG) PO SCH (09:00)
[2018-01-22] MEDS ORDERED: BENAZEPRIL HCL 5 MG PO SCH (09:00)
[2018-01-22] MEDS ORDERED: CAPOTEN PO SCH (09:00)
[2018-01-22] MEDS ORDERED: NON-FORMULARY MEDICATION (Metformin Hcl [Metformin Hcl] 1,000 MG) PO SCH (09:00)
[2018-01-22] MEDS: GLUCOPHAGE PO SCH (09:06)
[2018-01-22] MEDS: PROZAC PO SCH (09:06)
[2018-01-22] MEDS: ZANTAC PO SCH (09:06)
[2018-01-22] MEDS: TRADJENTA PO SCH (09:06)
[2018-01-22] MEDS: LIPITOR PO SCH (09:06)
[2018-01-22] MEDS: LOTENSIN PO SCH (09:07)
[2018-01-22] MEDS: LOVENOX SUBCUT SCH (09:08)
--- NOTE | 2018-01-22 11:09 | PN ---
DATE OF VISIT: 01/21/18 SUBJECTIVE: This 57-year-old female was admitted to the hospital from the emergncy room because of severe hyperglycemia but not DKA. The patient had not been feeling well and sugar had been high according to her glucoeter. This patient had not been on any medications for the last 2 months including all medications including insulin. She claimed that her insurance has changed. She had been experiencing polyuria and polydipsia for the last month. She claims that she doesn't eat on a regular basis and does not eat anything until about 3 or 4 o'clock in the afternoon. I did tell her that that is not a very good thing to do when one is diabetic, more so if they are using insulin to control their diabetes. The patient has hypertension, diabetes, hearing loss left ear from neuropathy according to her. She had ringing on the left ear, previous cholecystectomy and cataract extraction, appendectomy and hysterectomy. She also was diagnosed with peripheral arterial disease. She is alert and oriented with movement of all extremities. She has no tenderness in the frontomaxillary sinus areas. The patient is given insulind drip and the blood sugar is determined every hour. When the blood sugar approaches 200 then the insulin drip should be stopped and changed to lactated ringers. The patient should then have an Accu-Check every four hours with coverage plus C-peptide and GADS autoantibody is requested. Unable to request fasting insulin since this patient has insulin on board at this time. I suspect that this patient is probably a Type 2. MTDD
[2018-01-22] MEDS: HUMULIN R 100 UNIT in SODIUM CHLORIDE 100 ML IV SCH (19:11)
[2018-01-22] MEDS: LANTUS SUBCUT SCH (21:05)
[2018-01-23] MEDS: LACTATED RINGERS 1,000 ML IV SCH ×2 (00:01→10:53)
[2018-01-23] MEDS: ZANTAC PO SCH (05:40)
[2018-01-23] MEDS: HUMULIN R SUBCUT PRN ×4 (07:15→21:52)
[2018-01-23] MEDS: LIPITOR PO SCH (08:30)
[2018-01-23] MEDS: PROZAC PO SCH (08:30)
[2018-01-23] MEDS: TRADJENTA PO SCH (08:30)
[2018-01-23] MEDS: LOTENSIN PO SCH (08:31)
[2018-01-23] MEDS: LOVENOX SUBCUT SCH (08:31)
[2018-01-23] MEDS: GLUCOPHAGE PO SCH (08:31)
[2018-01-23] MEDS: LANTUS SUBCUT SCH (21:46)
[2018-01-24] MEDS: HUMULIN R SUBCUT PRN ×3 (02:28→14:34)
[2018-01-24] MEDS: ZANTAC PO SCH (05:36)
[2018-01-24] MEDS: LOTENSIN PO SCH (08:06)
[2018-01-24] MEDS: GLUCOPHAGE PO SCH (08:06)
[2018-01-24] MEDS: LIPITOR PO SCH (08:06)
[2018-01-24] MEDS: PROZAC PO SCH (08:07)
[2018-01-24] MEDS: TRADJENTA PO SCH (08:07)
[2018-01-24] MEDS: LOVENOX SUBCUT SCH (08:08)
[2018-01-24 14:36] VITALS: BP 126/79; TEMP 98
[2018-01-24] MEDS ORDERED: DIFLUCAN PO STA (14:46)
--- NOTE | 2018-03-14 08:42 | HP ---
DATE OF SERVICE: 01/21/18 CHIEF COMPLAINT: Polydipsia and polyuria and hyperglycemia. HISTORY OF PRESENT ILLNESS: 57 year old female was sent to the emergency room. She claimed to have experienced polyuria and polydipsia for the last month. She had been without medication at least to months including Insulin. She had not been feeling well and her glucometer at read very high. The patient presented to the emergency room and was found to have severe hyperglycemia. Blood sugar 652 mg percent. A1C 12.3. Arterial blood gases close to satisfactory. Oxygen saturation 95, pH 7.365, PCO2 35.9, PO2 79, carbonate 20.5, total CO2 22, base excess -5, FIO2 21%. The patient also told me that she doesn't eat regular meals. I did inform her at that time that it is not a very good habit to do that when one is diabetic and more so if they are taking Insulin. One has to eat a balanced calorie diet. PAST PERSONAL HISTORY: The patient had cataract extraction on both eyes two years ago. History of chest pain a few years ago. Diarrhea secondary to Metformin. The patient had previous cholecystectomy and hysterectomy. She had been diagnosed with diabetes since 2009. She had history of depression and anxiety. The patient had history of uterine cancer resulting to a hysterectomy. She also had hypertension. 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 FAMILY HISTORY: Brother has diabetes mellitus. Father had heart disease, as well as diabetes and mother had breast carcinoma. SOCIAL HISTORY: The patient is and resides with . Smoker and claimed to have stopped recently. No alcoholic beverages. MEDICATIONS: Prior to this admission, but the patient had run out of these medications consisting of: Lantus Insulin 100 Units subcutaneously in the evening Benazepril 5 mg daily Meloxicam 15 mg daily, 7.5 mg twice a day Tradjenta 5 mg daily Metformin 1,000 mg daily Prozac 20 mg capsule daily Captopril 25 mg daily Ranitidine 150 mg daily Lipitor 40 mg daily ALLERGIES: The patient has reaction to Loratadine. REVIEW OF SYSTEMS: CONSTITUTIONAL: Denies any fever or chills, but has fatigue and had been increasing over the last month or two. HOT DIE PICKER: Denies any headaches or syncopal episode or seizure disorder. VISUAL: Denies any double vision or loss of vision. Vision is sometimes blurry. AUDITORY: The patient has hearing loss on the left ear secondary to neurogenic reasons. RESPIRATORY: The patient denies any cough or any shortness of breath with usual exertion. CARDIOVASCULAR: The patient had history of chest pain, but had not had any lately. GASTROINTESTINAL: Denies any nausea, anorexia or dysphagia. No adominal pain. The patient has diarrhea ascribed to Metformin. GENITOURINARY: Denies any pain on urination, but has frequency of urination. MUSCULOSKELETAL: The patient does have some joint pains and is taking Meloxicam. ENDOCRINE: The patient has polyuria and polydipsia. She had been out of Insulin for about two months or more, as well as the rest of her medications. She is known to have diabetes and is on Insulin. INTEGUMENT: Denies any rash or pruritus. HEMATOLOGIC: Denies any history of prolonged bleeding. PSYCHIATRIC: Affect appears to be normal. PHYSICAL EXAMINATION: GENERAL: We have a 57 year old female admitted to the hospital because of polyuria and polydipsia secondary to severe hyperglycemia because of noncompliance to treatment. She is 225 pounds and 4 ounces. BMI 36.4. VITAL SIGNS: Temperature 98.4, pulse 73, blood pressure 120/75, respiratory rate 24, oxygen saturation 95 at room air. HEAD: Unremarkable. Scalp with no active dermatitis. FACE: Symmetrical and equal with no facial weakness. No redness. The patient denies any tenderness in the frontal or maxillary sinus areas to palpation under pressure. EYES: Pupils equal/reactive to light about 3 mm in size. Conjunctivae not pale. Sclerae not icteric. MOUTH: Unremarkable. THROAT: No inflammation, tumors or exudate. NECK: No masses. No bruit. No tenderness. No rigidity. CHEST: Essentially symmetrical and equal with good expansion and no remarkable tenderness. LUNGS: Breath sounds is diminished in both sides. No rales or wheezing. HEART: Audible and regular with good tones. No murmurs. ABDOMEN: Protuberant, pendulous, soft with no remarkable tenderness. No guarding. Bowel sounds are active. No masses palpable. EXTERNAL GENITALIA: Not examined. PELVIC AND RECTAL: Not performed. LOWER EXTREMITIES: Essentially symmetrical and equal with ankle edema. Anterior tibial pulses are present. UPPER EXTREMITIES: Symmetrical and equal. ASSESSMENT: 1. DIABETES MELLITUS, UNCONTROLLED WITH SEVERE HYPERGLYCEMIA SECONDARY TO NONCOMPLIANCE 2. HEARING LOSS, LEFT SIDE, NEUROGENIC 3. HYPERTENSION 4. DYSLIPIDEMIA 5. OSTEOARTHRITIS OF THE JOINTS PROBABLE MTDD
--- NOTE | 2018-03-14 09:02 | PN ---
DATE OF VISIT: 01/22/18 The patient at 6 p.m. on 01/22/2018 was alert and oriented. VITAL SIGNS: Temperature 97.7, pulse 80, blood [id number], respiratory rate 18, oxygen saturation 98 at room. LUNGS: The lungs still remained clear to auscultation. HEART: Normal sinus rhythm. The patient did have a good breakfast and the blood sugar by accucheck was 286 at 9 a.m. The patient is now on accucheck with sliding scale coverage. This patient was on 5 units per hour of Insulin regular on admission. The patients medications was continued. LABS: CBC showed normal WBC, as well as hemoglobin and hematocrit. Slightly lower MCV and MCH. Normal platelet count at 192,000. Electrolytes normal. E GFR is now 78. Blood sugar is 213 fasting this morning. The plasma C-peptide is 2.4. No results of the ABIGAIL 65 autoantibody at this time. CONDITION: Improved and stable. MTDD
--- NOTE | 2018-03-14 09:07 | PN ---
DATE OF VISIT: 01/23/18 The patient is alert and oriented times four. Not dyspneic, nor tachypneic. She denies any pain in both popliteal areas. The CBC is unchanged and showing lower MCV and MCH. Fasting blood sugar today 214. GFR 77. The alkaline phosphatase is now normal and had been since yesterday. It was slightly elevated on admission. The patient's ABIGAIL 65 autoantibody is less than 5. I had informed the patient that Dr. Chilel was asking about how she is doing. The patient is a patient of Dr. Chilel's. LUNGS: Clear to auscultation in both sides. HEART: Audible and regular with good tones. MTDD
--- NOTE | 2018-03-14 09:35 | DS ---
DATE OF SERVICE: 01/24/18 PATIENT IDENTIFICATION: 57 year old female patient of Dr. Chilel's was admitted to the hospital because of severe hyperglycemia with polyuria and polydipsia and fatigue. This patient had run out of medication in the last two months including the Insulin. She claimed that her insurance has changed and the new insurance would not pay for the medications. He blood sugar in the emergency room was 652 mg percent, but the arterial blood gases does not show any acidosis. HOSPITAL COURSE: The patient was given 5 units of regular insulin drip every hour. Her blood sugar was monitored very closely and the drip will stop when the blood sugar comes close to 250. Blood sugar level had returned towards acceptable levels and the patient was then placed on a sliding scale. The fasting blood sugar the following the day was 213 and on 01/23/18 it was 214 mg %. GFR had risen from 57 to 77 and 78. The patient also had some vaginitis and was treated with Diflucan one dose. The patient's temperature throughout her hospital stay had remained normal and the blood pressure and returned towards normal. The blood pressure at the emergency room was 155/101 and since then the blood pressure highest was 140 systolic. The oxygen saturation also ranged from 93 to 97 at room air. The patient at the time of discharge on 01/24/18 had a temperature of 98, pulse 83, blood pressure 126/79, respiratory rate 20, oxygen saturation 96 at room air. LUNGS: Diminished breath sounds, but clear. HEART: Audible and regular with good tones. ABDOMEN: Nontender and no tenderness in the calf muscles. The patient at the time of discharge was instructed to see Dr. Chilel the following Friday, January 26, 2018. The patient was provided Basaglar, since they didn't have enough finances to buy the medication and the Basaglar was a sample from my office. The patient is to give herself 20 units subcutaneously near bedtime or 9 p.m. She also has to continue Lipitor 40 mg daily, Benazepril 5 mg daily, Prozac 20 mg daily and Metformin 1000 mg twice a day and the next dose is tomorrow. The patient was advised to stop the Captopril. This patient is taking two kinds of EDITH. Plasma C-Peptide level is normal and the ABIGAIL 65 autoantibody is negative. 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 This patient was advised to begin gradual exercise beginning with short distances and increasingly. She was also advised to modify her eating habits and meals. She was further advised to eat balanced calorie diet meaning the same amount of calories in the morning, noon and evening. She does not eat any breakfast, which I felt that it is not a good idea, more so that she is taking Insulin. The patient, again, at discharge is alert, ambulatory without any chest pain. No pain in both legs. The patient was given instructions. FINAL DIAGNOSES: 1. DIABETES MELLITUS, PROBABLY TYPE II, UNCONTROLLED BECAUSE OF NONCOMPLIANCE ( ECONOMIC REASONS) 2. VAGINITIS SECONDARY TO HYPERGLYCEMIA 3. MARKEDLY ELEVATED BMI 4. HYPERTENSION ON MEDICATION 5. DEPRESSION ON MEDICATION PROGNOSIS: Guarded. MTDD
== END 2018-01-24 16:15 | disposition home or self-care (01) | DRG 639 ==
LOC: ED 17:44 → SCU 19:12
PROVIDERS: ADMIT General Practice; ATTEND General Practice
DX: E11.65 Type 2 diabetes mellitus with hyperglycemia (principal); T38.3X6A Underdosing of insulin and oral hypoglycemic [antidiabetic] drugs, initial encounter; M25.50 Pain in unspecified joint; I10 Essential (primary) hypertension; E78.5 Hyperlipidemia, unspecified; F32.9 Major depressive disorder, single episode, unspecified; E66.9 Obesity, unspecified; H90.5 Unspecified sensorineural hearing loss; N76.0 Acute vaginitis; Z83.3 Family history of diabetes mellitus; Z79.4 Long term (current) use of insulin; Z79.899 Other long term (current) drug therapy; Z91.19 Patient's noncompliance with other medical treatment and regimen; Z91.120 Patient's intentional underdosing of medication regimen due to financial hardship
CPT/HCPCS: 36415; 80048; 80053; 81001; 82803; 82962; 83036; 83519; 84443; 84681; 85025; 87081; 96360; 96372; 97802; 99284; 99285

== ENCOUNTER 2018-02-05 07:15 | Outpatient (CLI) | END 2018-02-05 07:16 | disposition home or self-care (01) | LOC: LAB 07:15 | PROVIDERS: ATTEND Family Medicine | DX: E78.5 Hyperlipidemia, unspecified (principal); E11.9 Type 2 diabetes mellitus without complications; I10 Essential (primary) hypertension; E66.9 Obesity, unspecified | CPT/HCPCS: 36415; 80053; 80061; 81001; 84439; 84443 ==

== ENCOUNTER 2018-04-12 09:36 | Emergency (ER) ==
[2018-04-12 09:42] VITALS: BP 141/75; TEMP 98.4; BMI 35.8
--- NOTE | 2018-04-12 10:09 | ED.PDOC ---
General ED Provider: Dr. PEPITO SOLIMAN Chief Complaint: Vaginal Discharge/Swelling Stated Complaint: Vaginal discharge, swelling and pain. HPI:RECENTLY DEVELOPED DISCHARGE AND REDDNESS AND WAS USING MONISTAT. HAD ASSOCIATED VAGINAL SWELLING AND WENT TO [employer] POOL AND POST EVENT SYMPTOMS WORSEND. NOW FEELS LIKE VULVAR AREA FEELS LIKE SKIN SPLITING Time Seen by Physician: 10:10 Mode of Arrival: Walk-In Information Source: Patient Exam Limitations: Clinical condition [facility] Nursing and Triage Documentation Reviewed and Agree: Yes Does patient meet sepsis criteria?: No System Inflammatory Response Syndrome: Not Applicable Sepsis Protocol: For patient's 13 years and over: Temp is 96.8 and below OR 101 and greater Pulse >90 BPM Resp >20/minute Acutely Altered Mental Status Are patient's symptoms suggestive of a new infection, such as: -Pneumonia -Skin, Soft Tissue -Endocarditis -UTI -Bone, Joint Infection -Implantable Device -Acute Abdominal Infection -Wound Infection -Meningitis -Blood Stream Catheter Infection -Unknown Complaint Exam - Complaint/Exam Patient Complains of: Reports: Vaginal discharge Symptoms Are: Still present Timing: Constant Initial Severity: Severe Current Severity: Severe Location of Pain: Reports: Vulva Character: Reports: Burning Aggravating: Reports: Movement, Urination Alleviating: Reports: None Associated Signs and Symptoms: Reports: Vaginal discharge, Genital swelling Related History: Reports: Similar episode Vulva Exam: Present: Labial erythema, Labial swelling, Abrasion Vaginal Exam: Absent: Normal Findings Cervical Exam: Absent: Normal findings Differential Diagnoses: Other (Monilial Vaginitis) Review of Systems - Review Of Systems Constitutional: Reports: No symptoms Eyes: Reports: No symptoms Ears, Nose, Mouth, Throat: Reports: No symptoms Respiratory: Reports: No symptoms Cardiac: Reports: No symptoms GI: Reports: No symptoms : Reports: Burning, Dysuria, Discharge, Frequency Musculoskeletal: Reports: No symptoms Skin: Reports: No symptoms Neurological: Reports: No symptoms Endocrine: Reports: No symptoms Hematologic/Lymphatic: Reports: No symptoms All Other Systems: Reviewed and Negative Past Medical History - Past Medical History Previously Healthy: No Endocrine: Reports: DM 2 Cardiovascular: Reports: Unknown Respiratory: Reports: Unknown Hematological: Reports: Unknown Gastrointestinal: Reports: Unknown Genitourinary: Reports: Unknown Neuro/Psych: Reports: Unknown Musculoskeletal: Reports: Unknown Cancer: Reports: Unknown Last Menstrual Period: HYSTERECTOMY - Surgical History General Surgical History: Reports: Unknown - Family History Family History: Reports: Unknown - Social History Smoking Status: Former smoker Hx Substance Use: No Alcohol Screening: None Physical Exam - Physical Exam Appearance: Well-appearing, No pain distress, Well-nourished Eyes: JOSE, EOMI, Conjunctiva clear ENT: Ears normal, Nose normal, Oropharynx normal Respiratory: Airway patent, Breath sounds clear, Breath sounds equal, Respirations nonlabored Cardiovascular: RRR, Pulses normal, No rub, No murmur GI/: Soft, No masses, Bowel sounds normal, No Organomegaly, Tender Musculoskeletal: Normal strength, ROM intact, No edema, No calf tenderness Skin: Warm, Dry, Normal color Neurological: Sensation intact, Motor intact, Reflexes intact, Cranial nerves intact, Alert, Oriented Psychiatric: Affect appropriate, Mood appropriate Critical Care Note - Critical Care Note Total Time (mins): 0 Course - Course Hematology/Chemistry: 04/12/18 10:16 04/12/18 10:35 Orders, Labs, Meds: Lab Review 04/12/18 04/12/18 04/12/18 08:30 10:16 10:35 WBC 6.60 RBC 5.13 Hgb 13.4 Hct 41.0 MCV 79.9 L MCH 26.1 L MCHC 32.7 RDW Coeff of Wilian 14.6 Plt Count 217 Immature Gran % (Auto) 0.9 Neut % (Auto) 64.5 Lymph % (Auto) 23.2 Mercer % (Auto) 8.0 Eos % (Auto) 2.0 Baso % (Auto) 1.4 Immature Gran # (Auto) 0.1 Neut # (Auto) 4.3 Lymph # (Auto) 1.5 Mercer # (Auto) 0.5 Eos # (Auto) 0.1 Baso # (Auto) 0.1 Sodium 133 L Potassium 4.3 Chloride 98 Carbon Dioxide 24 Anion Gap 15.3 BUN 17 Creatinine 1.03 Estimated GFR (MDRD) 55.00 BUN/Creatinine Ratio 16.50 Glucose 448 H Hemoglobin A1c 11.2 H Calcium 9.6 Total Bilirubin 0.6 AST 9 L ALT 15 Alkaline Phosphatase 94 Total Protein 8.2 Albumin 3.4 Globulin 4.8 Albumin/Globulin Ratio 0.71 Orders Category Date Time Status CBC W/ AUTO DIFF Stat LAB 04/12/18 10:16 Completed CMP [COMPREHENSIVE METABOLIC PANEL] Stat LAB 04/12/18 10:35 Completed HEMOGLOBIN A1C Stat LAB 04/12/18 08:30 Completed Vital Signs: Temp Pulse Resp BP Pulse Ox 04/12/18 09:37 98.4 F 92 H 18 141/75 H 97 Departure - Departure Time of Disposition: 12:15 Disposition: HOME SELF-CARE Discharge Problem: Monilial vulvovaginitis, Labial abrasion Instructions: Yeast Infection (ED), Vaginitis (ED) Condition: Fair Pt referred to PMD for follow-up: Yes (PCP) IPMP verified?: No Additional Instructions: Warm sitz bath Use Med as directed Cleanse area with sooting soap and warm water May apply Cream topically Tripple antibiotic ointment to area of abrasion Diflucan 150 mg 1 today and repeat in 1 week Allergies/Adverse Reactions: Allergies loratadine [From Claritin] Adverse Reaction (Verified 04/12/18 09:42) Nausea nausea and rapid heart rate Home Medications: Ambulatory Orders Ranitidine HCl [Acid Control] 150 mg PO DAILY 01/21/18 Atorvastatin Calcium 40 mg PO DAILY #30 tablet 01/24/18 Benazepril HCl 5 mg PO DAILY #30 tablet 01/24/18 Fluoxetine HCl 20 mg PO DAILY #30 capsule 01/24/18 Metformin HCl 1,000 mg PO DAILY #60 tablet 01/24/18 Fluconazole [Diflucan] 150 mg PO ONCE #2 tablet 04/12/18 Hum Insulin NPH/Reg Insulin Hm [Novolin 70-30 Insulin] 15 units SUBCUT DAILY 02/23 Hum Insulin NPH/Reg Insulin Hm [Novolin 70-30 Insulin] 25 units SUBCUT DAILY 02/23
== END 2018-04-12 12:40 | disposition home or self-care (01) ==
LOC: ED 09:36
DX: B37.3 Candidiasis of vulva and vagina (principal); S30.814A Abrasion of vagina and vulva, initial encounter; E11.9 Type 2 diabetes mellitus without complications
CPT/HCPCS: 36415; 80053; 83036; 85025; 99283

== ENCOUNTER 2018-08-10 15:53 | Outpatient (CLI) | END 2018-08-10 15:54 | disposition home or self-care (01) | LOC: FCC-LAB 15:53 | PROVIDERS: ATTEND Family Medicine | DX: E11.9 Type 2 diabetes mellitus without complications (principal); E11.42 Type 2 diabetes mellitus with diabetic polyneuropathy | CPT/HCPCS: 36415; 80053; 80061; 82043; 82607; 83036; 85025 ==

== ENCOUNTER 2018-12-12 12:54 | Outpatient (CLI) | END 2018-12-12 12:55 | disposition home or self-care (01) | LOC: RHC-LAB 12:54 → FCC-LAB 12:55 | PROVIDERS: ATTEND Family Medicine | DX: E11.65 Type 2 diabetes mellitus with hyperglycemia (principal); E11.42 Type 2 diabetes mellitus with diabetic polyneuropathy; Z79.4 Long term (current) use of insulin; F33.1 Major depressive disorder, recurrent, moderate; E78.2 Mixed hyperlipidemia | CPT/HCPCS: 36415; 80053; 80061; 83037; 85025 ==

== ENCOUNTER 2018-12-25 12:20 | Outpatient (CLI) | END 2018-12-25 12:21 | disposition home or self-care (01) | LOC: RHC-LAB 12:20 → FCC-LAB 12:21 | PROVIDERS: ATTEND Family Medicine | DX: R35.8 Other polyuria (principal); M79.651 Pain in right thigh; M79.652 Pain in left thigh | CPT/HCPCS: 87086 ==

== ENCOUNTER 2018-12-28 09:36 | Outpatient (CLI) | END 2018-12-28 09:37 | disposition home or self-care (01) | LOC: RHC-LAB 09:36 → FCC-LAB 09:37 | PROVIDERS: ATTEND Family Medicine | DX: R35.8 Other polyuria (principal) | CPT/HCPCS: 87086 ==

== ENCOUNTER 2019-01-17 14:03 | Outpatient (CLI) | END 2019-01-17 14:04 | disposition home or self-care (01) | LOC: RAD 14:03 | PROVIDERS: ATTEND Obstetrics & Gynecology | DX: Z12.31 Encounter for screening mammogram for malignant neoplasm of breast (principal) ==

== ENCOUNTER 2019-01-21 09:34 | Outpatient (CLI) ==
[2019-01-21 10:49] VITALS: BMI 35.3
== END 2019-01-21 09:35 | disposition home or self-care (01) ==
LOC: DIETCN 09:34
PROVIDERS: ATTEND Family Medicine
DX: E11.9 Type 2 diabetes mellitus without complications (principal); R35.8 Other polyuria; Z68.41 Body mass index [BMI] 40.0-44.9, adult; Z91.19 Patient's noncompliance with other medical treatment and regimen
CPT/HCPCS: 97802

== ENCOUNTER 2019-01-22 08:19 | Outpatient (POV) ==
[2019-01-21 10:49] VITALS: BMI 35.3
== END 2019-01-22 17:00 ==
LOC: OUTPT 08:19
PROVIDERS: ATTEND Otolaryngology
DX: H91.90 Unspecified hearing loss, unspecified ear (principal)
CPT/HCPCS: 92557; 92567

== ENCOUNTER 2019-01-29 12:35 | Outpatient (CLI) ==
--- NOTE | 2019-01-29 14:27 | US ---
EXAM: Ultrasound venous insufficiency. Bilateral lower extremity HISTORY: Pain in right thigh COMPARISON: None TECHNIQUE: Ultrasound venous insufficiency. Bilateral lower extremity was performed FINDINGS: Right and left common femoral, greater saphenous, profunda femoral, femoral, and popliteal veins are patent without evidence for deep venous thrombus. No definite reflux identified. Right: Common femoral vein: 1.6 cm Popliteal vein: 1.1 cm Greater saphenous vein: Saphenofemoral junction: 1.4 cm Proximal thigh: 0.9 cm Mid thigh: 0.5 cm Distal thigh: 0.6 cm Proximal calf: 0.5 cm Mid calf: 0.3 cm Distal calf: 0.2 cm Lesser saphenous vein: Saphenopopliteal junction: 0.4 cm Proximal calf: 0.5 cm Mid calf: 0.2 cm Distal calf: 0.2 cm Left: Common femoral vein: 2.0 cm Popliteal vein: 0.9 cm Greater saphenous vein: Saphenofemoral junction: 1.0 cm Proximal thigh: 0.6 cm Mid thigh: 0.6 cm Distal thigh: 0.6 cm Proximal calf: 0.4 cm Mid calf: 0.3 cm Distal calf: 0.2 cm Lesser saphenous vein: Saphenopopliteal junction: 0.5 cm Proximal calf: 0.4 cm Mid calf: 0.4 cm Distal calf: 0.2 cm IMPRESSION: No definite reflux identified
--- NOTE | 2019-01-30 09:24 | RS.CXNS ---
Date of scheduled appointment: 01/30/19 Type: Cancel (unknown)
== END 2019-01-29 12:36 | disposition home or self-care (01) ==
LOC: RAD 12:35
PROVIDERS: ATTEND Family Medicine
DX: M79.651 Pain in right thigh (principal); M79.652 Pain in left thigh

== ENCOUNTER 2019-02-04 13:00 | Outpatient (RCR) ==
--- NOTE | 2019-01-21 10:36 | RS.OPPTEV2 ---
Date of Note: 01/18/19 Visit #: 1 Number of visits approved by Insurance: pending Date of Evaluation: 01/18/19 Payer Source: Medicaid Surgery Performed?: No Treatment Diagnosis: B LE pain History of Condition/Mechanism of Injury:: Pain began initially in 2012. Reports pain has continued to get more severe. No definite injury noted. Prior Level of Function.....Patient was independent with: ADL's, Self Care, Ambulation/Mobility, Community Integration/Access Level of Function: pt states her activity level is limited due to LE pain. Functional Limitations: Sitting, Standing, Bending, Squatting, Ambulation, Community Access/Integration Current Subjective/complaints:: pt states that she was told years ago that her leg pain was from PAD, but that current MD feels it is musculoskeletal. She states if she stands very long at all she has increased pain in LE and burning in her feet. States if she sits too long she has increased pain. Treatment Side (optional): Bilateral *Precautions: n/a Medical History Medical History: Diabetes, Arthritis Medical History Comments:: neuropathy, L ear nerve damage. Surgical History: Cholecystectomy, Tonsillectomy, Hysterectomy Surgical History Comments:: appey, cataract surgery with lens implants Smoking Status: Former smoker Hx Home Medications: insulin, atorvastatin, metformin, trajenta Patient's Goals: decrease BLE pain Pain Assessment - Pain Description Pain Location: BLE (reports pain in thighs to feet) Current Pain Intensity: 8 Worst Pain Intensity: 10 Functional Outcome Measure LE Functional Scale: 29 - G Codes & Severity Modifier G Codes & Modifier: n/a Source of G Code score: n/a Observation - Observation Inspection: pt with genu valgus B LE. pt with hamstring tightness RLE. BLE heel cord tightness. Pedal pulses present/strong Posture: Forward Head, Rounded Shoulders, Increased Thoracic Kyphosis Handedness: Right Gait - Gait Pattern Gait Comments: pt amb with knees flexed (during eval) when leaving dept amb with normal gait pattern. General Range of Motion: BUE WFL's. LLE WFL's. RLE WFL's with pain with ROM Muscle Strength: BUE 4+/5. LLE 4-/5. RLE hip flex 3+/5, knee flex 3+, ext 3/5 , ankle DF/PF 4-/5 - ROM Comments: Lumbar ROM limited in all planes due to pain, however is not consistent. - Strength Trunk Extension: 4- Good- Trunk Flexion: 4- Good- Trunk Lateral Flexion: 4- Good- Trunk Rotation: 4- Good- - Special Tests VIVIAN Test: Negative Left, Negative Right SLR Test: Positive Left, Positive Right SI Joint Compression: Negative Palpation Palpation Findings: Tenderness Comments:: pt with tenderness with any touch, any part of LE and lumbar spine. Sensation - Sensation Right Upper Extremity: Intact/Normal Left Upper Extremity: Intact/Normal Right Lower Extremity: Impaired Left Lower Extremity: Impaired Comments: pt reports burning, numbness and tingling B feet Balance - Sitting Balance Static Sitting Balance: Normal Dynamic Sitting Balance: Normal - Standing Balance Static Standing Balance: Good Dynamic Standing Balance: Good Interventions - Exercise/Activities/Manual Therapy Exercises/Activities: pt received BLE hamstring stretch, heel cord stretch, pt performed isometric hip add, lower trunk rotation. pt c/o pain with each ex. Manual Therapy: n/a HOME EXERCISE PROGRAM: pt given written HEP including hamstring stretch, heel cord stretch, lower trunk rotation, isometric hip add. - Charges Timed Code Treatment Minutes: 51 Total Treatment Time: 62 Procedures billed for this date of service:: eval med, ex EVALUATION COMPLEXITY LEVEL EVALUATION COMPLEXITY LEVEL: HISTORY: Medium (DM, OA, neuropathy, pain, ), EXAM OF BODY SYSTEMS: Medium (pain, strength, gait, flexibility), CLINICAL PRESENTATION: Medium, CLINICAL DECISION MAKING: Medium Assessment Assessment: pt presents with BLE pain, decreased strength, decreased flexibility , pt with high pain profile. Feel pt may benefit from skilled PT for therex for LE stretching, strengthening, modalities to decrease pain. Patient Education: Home Exercise Program, Education of Plan of Care Rehab Potential: Good Short Term Goals Goal #1: pt independent with HEP Goal to be met by: 02/01/19 Goal #2: Decrease pain to < 6/10 BLE Goal to be met by: 02/01/19 Goal #3: Improve BLE hamstring flexibility WFL's Goal to be met by: 02/01/19 Half-Way Goals Goal #1: Improve LE functional scale >35 Goal to be met by: 02/15/19 Goal #2: pt rate pain <5/10 Goal to be met by: 02/15/19 Goal #3: pt able to tolerate walking her dog with less pain Goal to be met by: 02/15/19 Plan - Treatment to be Provided Procedures: Therapeutic Exercises, Therapeutic Activity, Manual Therapy, Massage , Patient Education Modalities: Cryotherapy, Hot Packs - Treatment Plan Frequency: 2 X week Duration: 4 weeks Dates of Half-Way Goals: 02/15/19 Expiration date of current Insurance Approval:: pending - Treatment Code (1) Pain in both thighs Code(s): M79.651 - PAIN IN RIGHT THIGH; M79.652 - PAIN IN LEFT THIGH (2) Muscle weakness Code(s): M62.81 - MUSCLE WEAKNESS (GENERALIZED) (3) Osteoarthritis Code(s): M19.90 - UNSPECIFIED OSTEOARTHRITIS, UNSPECIFIED SITE Qualifiers: Osteoarthritis location: unspecified site Osteoarthritis type: unspecified Qualified Code(s): M19.90 - Unspecified osteoarthritis, unspecified site
--- NOTE | 2019-02-04 14:00 | RS.OPPTDN ---
Subjective Date of Note: 02/04/19 Visit #: 2 Number of visits approved by Insurance: pending Date of Evaluation: 01/18/19 Payer Source: Medicaid Treatment Diagnosis: B LE pain Current Subjective/complaints:: Patient reports pain in both thighs ,and the R knee is bothering her more today,is uncertain why the R knee is hurting more . *Precautions: n/a Pain Assessment - Pain Description Pain Location: both thighs Pain Description: Aching, Chronic Current Pain Intensity: 9 Interventions - Exercise/Activities/Manual Therapy Exercises/Activities: 55 mins. total of ex/ther. act,including patient education for pain control.Exercises today include ankle pumpas ,SAQ's , heelslides ,assisted hip abd/adduction,3/10 -15 each. Total minutes of Exercise: 40 Manual Therapy: n/a Total minutes of Manual Therapy: 0 HOME EXERCISE PROGRAM: pt given written HEP including hamstring stretch, heel cord stretch, lower trunk rotation, isometric hip add. - Charges Timed Code Treatment Minutes: 55 Total Treatment Time: 55 Procedures billed for this date of service:: ex 3,ther. act. Assessment: Patient fatigues easily ,c/o muscle aches and cramps in both legs.She has difficulty with heelslides due to R knee pain today.She is attentive to recommendartions of the therapy staff. Patient Education: Education of diagnosis, Body/Joint mechanics, Home Exercise Program, Home Safety, Activity Modification, Education of Plan of Care Short Term Goals Goal #1: pt independent with HEP Goal to be met by: 02/01/19 Progress towards Goal:: Progressing Goal #2: Decrease pain to < 6/10 BLE Goal to be met by: 02/01/19 Goal #3: Improve BLE hamstring flexibility WFL's Goal to be met by: 02/01/19 Piercer Goals Goal #1: Improve LE functional scale >35 Goal to be met by: 02/15/19 Goal #2: pt rate pain <5/10 Goal to be met by: 02/15/19 Goal #3: pt able to tolerate walking her dog with less pain Goal to be met by: 02/15/19 Plan Dates of Senior Care Goals: 02/15/19 Expiration date of current Insurance Approval:: pending PLAN: Cont. skilled PT to strengthen the LE's,reduce/eliminate pain .
== END 2019-02-05 23:59 ==
PROVIDERS: ATTEND Family Medicine
DX: M79.651 Pain in right thigh (principal); M79.652 Pain in left thigh

== ENCOUNTER 2019-02-12 10:42 | Outpatient (CLI) | payer OTHER ==
--- NOTE | 2019-02-12 11:55 | DI ---
EXAM: Four views of the right knee. History: Right knee pain. Findings: No acute fracture or dislocation. Superior patellar enthesiopathy. Moderate to severe na rrowing of the lateral compartment. Mild to moderate narrowing of the medial patellofemoral compartm ents with osteophyte formation. Findings: 1. No acute osseous abnormality. 2. Tricompartmental osteoarthritis
== END 2019-02-12 10:43 | disposition home or self-care (01) ==
LOC: RAD 10:42
PROVIDERS: ATTEND Family Medicine
DX: M25.561 Pain in right knee (principal)

== ENCOUNTER 2019-02-12 11:00 | Outpatient (RCR) ==
--- NOTE | 2019-02-06 14:34 | RS.OPPTDN ---
Subjective Date of Note: 02/06/19 Visit #: 3 Number of visits approved by Insurance: pending Date of Evaluation: 01/18/19 Payer Source: Medicaid Treatment Diagnosis: B LE pain Current Subjective/complaints:: Patient reports muscle soreness in the legs is about the same from beginning the exercises,but the R knee pain bothers her more today.She thinks she aggravated the R knee as she was going down steps. *Precautions: n/a Pain Assessment - Pain Description Pain Location: both LE's Pain Description: Aching, Chronic Current Pain Intensity: 06/18 - Heat/Cryotherapy Treatment: Hot Pack (20 mins.to both thighs,prior to exercises) Interventions - Exercise/Activities/Manual Therapy Exercises/Activities: 40 mins. total Exercises today include ankle pumps ,SAQ's ,heelslides ,assisted hip abd/adduction,3/10 -15 each.,with 2 # resistance.3/15 each .10 reps assisted SLR' on R due to knee pain ,unassisted on L LE. Total minutes of Exercise: 40 Manual Therapy: na Total minutes of Manual Therapy: 0 HOME EXERCISE PROGRAM: ankle pumps,heelslides SAQ's,hip abd/adduction as tolerated . - Charges Timed Code Treatment Minutes: 40 Total Treatment Time: 60 Procedures billed for this date of service:: hp,ex 3 Assessment: Patient tolerates exercises better today,but increased pain with R LE heelslides due to knee pain.She fatigues easily due to muscle de-conditioning ,requires frequent rest periods.She reports slight decrease in leg pain after being on the moist heat. Patient Education: Education of diagnosis, Body/Joint mechanics, Home Exercise Program, Home Safety, Activity Modification, Education of Plan of Care Patient demonstrates compliance with HEP?: Yes Short Term Goals Goal #1: Patient I with HEP Goal to be met by: 02/01/19 Progress towards Goal:: Progressing Goal #2: Decrease pain to < 6/10 B LE 's Goal to be met by: 02/01/19 Goal #3: Improve B LE's hamstring flexibility Goal to be met by: 02/01/19 Fdc Goals Goal #1: Improve LE functional scale to >35 Goal to be met by: 02/15/19 Goal #2: Rate pain < 5/10 in B LE's Goal to be met by: 02/15/19 Goal #3: Tolerate walking the dog with less pain. Goal to be met by: 02/15/19 Plan Dates of Fdc Goals: 02-15-19 Expiration date of current Insurance Approval:: pending PLAN: Cont. skilled PT to maximize the LE strength ,eliminate leg pain.
--- NOTE | 2019-02-12 12:41 | RS.OPPTDN ---
Subjective Date of Note: 02/12/19 Visit #: 4 Number of visits approved by Insurance: pending Date of Evaluation: 01/18/19 Payer Source: Medicaid Treatment Diagnosis: B LE pain Current Subjective/complaints:: Patient reports she had an x-ray earlier today of the R knee ,as it still continues to hurt.She also reports both legs are still sore. *Precautions: n/a Pain Assessment - Pain Description Pain Location: both legs Pain Description: Dull, Aching Current Pain Intensity: 8/10 - Heat/Cryotherapy Treatment: Hot Pack (20 mins. prior to exercises) Interventions - Exercise/Activities/Manual Therapy Exercises/Activities: 35 mins. total Exercises today including L LE AROM in all directions,R LE exercises are passive to AAROM due to R knee pain.Patient education for joint protection and pain control recommendations for the R knee.Exercises included ankle pumps,SLR's,hip abd/adduction,quad sets. Total minutes of Exercise: 35 Manual Therapy: na Total minutes of Manual Therapy: 0 HOME EXERCISE PROGRAM: ankle pumps,heelslides SAQ's,hip abd/adduction as tolerated . - Charges Timed Code Treatment Minutes: 35 Total Treatment Time: 55 Procedures billed for this date of service:: hp,ex 2,ther act Assessment: Patient tolerates the L LE exercises well,but the R knee pain is present today with passive or assisted motion.Patient reports her legs ache constantly ,and they feel cold at times ,even in the warmer summer months. Patient Education: Education of diagnosis, Body/Joint mechanics, Home Exercise Program, Home Safety, Activity Modification, Education of Plan of Care Patient demonstrates compliance with HEP?: Yes Short Term Goals Goal #1: Patient I with HEP Goal to be met by: 02/01/19 Progress towards Goal:: Progressing Goal #2: Decrease pain to < 6/10 B LE 's Goal to be met by: 02/01/19 Goal #3: Improve B LE's hamstring flexibility Goal to be met by: 02/01/19 Eyelet Punch Operator Goals Goal #1: Improve LE functional scale to >35 Goal to be met by: 02/15/19 Goal #2: Rate pain < 5/10 in B LE's Goal to be met by: 02/15/19 Goal #3: Tolerate walking the dog with less pain. Goal to be met by: 02/15/19 Plan Dates of Detention Goals: 02-15-19 Expiration date of current Insurance Approval:: pending PLAN: Cont. skilled PT to reduce/eliminate LE pain.
--- NOTE | 2019-02-15 13:16 | RS.CXNS ---
Date of scheduled appointment: 02/15/19 Type: No Show Reason for Cancel/NS: Unknown ,and the current order for PT expires today.
--- NOTE | 2019-03-05 15:31 | RS.QUICKDC ---
Discharge from PT Date of Discharge: 03/05/19 Number of Visits: 4 Reason for Discharge: No show on 02-15-19,and current order .Patient last seen in PT on 02-12-19.
== END 2019-03-08 23:59 ==
PROVIDERS: ATTEND Family Medicine
DX: M79.652 Pain in left thigh (principal); M79.651 Pain in right thigh

== ENCOUNTER 2019-03-12 13:38 | Outpatient (POV) | END 2019-03-12 17:00 | LOC: OUTPT 13:38 | PROVIDERS: ATTEND Otolaryngology | DX: H91.90 Unspecified hearing loss, unspecified ear (principal) ==

== ENCOUNTER 2019-03-19 11:09 | Outpatient (POV) | END 2019-03-19 17:00 | LOC: OUTPT 11:09 | PROVIDERS: ATTEND Otolaryngology | DX: H91.90 Unspecified hearing loss, unspecified ear (principal) | CPT/HCPCS: 92552; 92557; 92567 ==

== ENCOUNTER 2019-03-26 11:08 | Outpatient (POV) | END 2019-03-26 17:00 | LOC: OUTPT 11:08 | PROVIDERS: ATTEND Otolaryngology | DX: H91.90 Unspecified hearing loss, unspecified ear (principal) | CPT/HCPCS: 92557 ==

== ENCOUNTER 2019-04-05 17:26 | Emergency (ER) ==
[2019-04-05 17:48] VITALS: BP 139/84; TEMP 99.4; BMI 36.4
--- NOTE | 2019-04-05 18:06 | ED.PDOC ---
General ED Provider: Dr. ZEN PENA Chief Complaint: Blockage in Ear Stated Complaint: gradual hearing loss. pt see's doctor diana for the issue. stated the hearing loss is getting worse Time Seen by Physician: 17:30 (seen with crissy/fran ) Mode of Arrival: Walk-In Information Source: Patient Exam Limitations: No limitations Primary Care Provider: MELLO ROCHA Nursing and Triage Documentation Reviewed and Agree: Yes Does patient meet sepsis criteria?: No System Inflammatory Response Syndrome: Not Applicable Sepsis Protocol: For patient's 13 years and over: Temp is 96.8 and below OR 101 and greater Pulse >90 BPM Resp >20/minute Acutely Altered Mental Status Are patient's symptoms suggestive of a new infection, such as: -Pneumonia -Skin, Soft Tissue -Endocarditis -UTI -Bone, Joint Infection -Implantable Device -Acute Abdominal Infection -Wound Infection -Meningitis -Blood Stream Catheter Infection -Unknown EENT Complaint Exam - Ear Complaint/Exam Onset/Duration: chronic issue Symptoms Are: Still present Timing: Constant Initial Severity: Mild Current Severity: Mild Aggravating: Reports: None Alleviating: Reports: None Associated Signs and Symptoms: Denies: Ear trauma, Ear swelling, Discharge, Fever, Hearing loss, Bleeding, Sore throat, Headache, URI symptoms, Foreign body sensation, Rash, Pain to external ear, Pain to external face Related History: Reports: Similar Episode Ear Surgical History: None Vesicles to External Pinna: No Vesicles to Tragus: No TMJ Tenderness: None Mastoid Tenderness: None Tragal Tenderness: None External Canal: Normal Material in Canal: Absent: Cerumen, Cerumen impaction, Discharge, Blood, Foreign body Differential Diagnoses: Other (neuronal hearing loss) Review of Systems - Review Of Systems Constitutional: Reports: No symptoms Eyes: Reports: No symptoms Ears, Nose, Mouth, Throat: Denies: Ear discharge, Nose pain, Nose discharge Respiratory: Reports: No symptoms Cardiac: Reports: No symptoms GI: Reports: No symptoms : Reports: No symptoms Musculoskeletal: Reports: No symptoms Skin: Reports: No symptoms Neurological: Reports: No symptoms Endocrine: Reports: No symptoms Hematologic/Lymphatic: Reports: No symptoms All Other Systems: Reviewed and Negative Past Medical History - Past Medical History Previously Healthy: No Endocrine: Reports: DM 2 Cardiovascular: Reports: Unknown Respiratory: Reports: Unknown Hematological: Reports: Unknown Gastrointestinal: Reports: Unknown Genitourinary: Reports: Unknown Neuro/Psych: Reports: Unknown Musculoskeletal: Reports: Unknown Cancer: Reports: Unknown Last Menstrual Period: unknown - Surgical History General Surgical History: Reports: Unknown - Family History Family History: Reports: Unknown - Social History Smoking Status: Former smoker Hx Substance Use: No Alcohol Screening: None Physical Exam - Physical Exam Appearance: Well-appearing, No pain distress, Well-nourished Eyes: JOSE, EOMI, Conjunctiva clear ENT: Nose normal, Oropharynx normal Respiratory: Airway patent, Breath sounds clear, Breath sounds equal, Respirations nonlabored Cardiovascular: RRR, Pulses normal, No rub, No murmur GI/: Soft, Nontender, No masses, Bowel sounds normal, No Organomegaly Musculoskeletal: Normal strength, ROM intact, No edema, No calf tenderness Skin: Warm, Dry, Normal color Neurological: Sensation intact, Motor intact, Reflexes intact, Cranial nerves intact, Alert, Oriented Psychiatric: Affect appropriate, Mood appropriate Critical Care Note - Critical Care Note Total Time (mins): 0 Course - Course Vital Signs: Temp Pulse Resp BP Pulse Ox 04/05/19 17:28 99.4 F 83 20 139/84 96 Departure - Departure Time of Disposition: 18:06 (AMBULATORY NO ATAXIA, NO MOTOR DEFICITS) Disposition: HOME SELF-CARE Discharge Problem: Ear problem Hearing loss of right ear Qualifiers: Hearing loss type: mixed conductive and sensorineural Contralateral hearing status: unspecified Qualified Code(s): H90.71 - Mixed conductive and sensorineural hearing loss, unilateral, right ear, with unrestricted hearing on the contralateral side Instructions: Hearing Loss (ED) Condition: Good Pt referred to PMD for follow-up: Yes IPMP verified?: No Additional Instructions: Please call your Family Physician as soon as possible to schedule a follow-up appointment.you must see your MD DISCUSS VARIOUS OPTIONS FOR A HEARING AID AND UNDERGO FURTHER TESTING. THERE IS NO EVIDENCE OF INFECTION OR FOREIGN BODY IN YOUR EAR Allergies/Adverse Reactions: Allergies duloxetine HCl [From Cymbalta] Adverse Reaction (Intermediate, Verified 17:49) gabapentin Adverse Reaction (Unknown, Verified 04/05/19 17:49) loratadine [From Claritin] Adverse Reaction (Verified 04/05/19 17:49) Nausea nausea and rapid heart rate Home Medications: Ambulatory Orders Lamotrigine [Lamictal] 25 mg PO BID 02/12/19 Olanzapine [Zyprexa] 2.5 mg PO DAILY 02/12/19 Neomycin/Polymyxin B/Hc Otic [Cortisporin Otic Susp] 10 ml OT DIRECTED Ondansetron HCl [Zofran] 8 mg PO DAILY PRN 04/02/19 Insulin Glargine,Hum.rec.anlog [Jocelyn Guerrero U-100] 80 unit SQ BEDTIME 04/05 Disposition Discussed With: Patient
== END 2019-04-05 18:22 | disposition home or self-care (01) ==
LOC: ED 17:26
DX: H90.71 Mixed conductive and sensorineural hearing loss, unilateral, right ear, with unrestricted hearing on the contralateral side (principal)
CPT/HCPCS: 99282

== ENCOUNTER 2019-05-22 10:05 | Outpatient (POV) | END 2019-05-22 17:00 | LOC: OUTPT 10:05 | PROVIDERS: ATTEND Otolaryngology | DX: H90.5 Unspecified sensorineural hearing loss (principal) ==

== ENCOUNTER 2019-06-05 10:18 | Outpatient (POV) | payer OTHER | END 2019-06-05 17:00 | LOC: OUTPT 10:18 | PROVIDERS: ATTEND Otolaryngology | DX: H91.90 Unspecified hearing loss, unspecified ear (principal) ==